=== PATIENT | female | born 1995 | race Caucasian/White ===

== ENCOUNTER 2016-10-12 14:06 | Emergency (ER) | payer SELFPAY ==
--- NOTE | 2016-10-12 14:15 | EDPRACDOC ---
- General Information Stated Complaint: LIP LESIONS Time Seen by Provider: 10/12/16 14:10 Information Source: Patient Home Medications: Home Medications Acyclovir 400 mg PO TID 10 Days 10/12/16 Clindamycin [Cleocin] 300 mg PO TID #60 capsule 10/12/16 Hydrocodone Bit/Acetaminophen [Hydrocodon-Acetaminophen 5-325] 1 tab PO Q4H PRN #10 tab 10/12/16 - History of Present Illness Onset: 4 DAYS HPI: PT STATES SHE BITE HER LIP 4-5 DAYS AGO AND THE NEXT MORNING WOKE UP WITH WHAT FELT LIKE A BUMP ON HER BOTTOM LIP ON LEFT AND HAS STARTED GETTING BIGGER SINCE , NOW HAVING PAIN AND SWELLING. PT STATES SHE THOUGHT IT WAS A COLD SORE B/C SHE GETS THEM FROM TIME TO TIME BUT THIS JUST KEEPS GETTING BIGGER. Location: Reports: Face (LEFT BOTTOM LIP) Relevent History Of: Reports: None Prior Abscess: Reports: None Pain: Reports: Mild, Moderate Quality: Reports: Painful, Red Associated Signs & Symptoms: Reports: None ED Past Medical History - History Reviewed Yes Nurses notes reviewed and agree except as marked Travel Outside of [place] in the Last 3 Months?: No No Past Medical History: Yes Patient has no past medical history - Social Medical History ETOH: None Substance Abuse: None Lives With: Other Lives In: Home EDM Review of Systems - Review of Systems ROS Negative Except as Marked: Yes All systems reviewed and were negative except as marked Constitutional: No Symptoms Reported. negative: Fever, Chills, Weakness, Fatigue, Loss of Appetite Eyes: No Symptoms Reported. negative: Redness, Blurred Vision, Double Vision, Discharge, Pain, Light Sensitive, Photophobia Ears: No Symptoms Reported. negative: Pain, Hearing Loss, Drainage, Ear Pulling Throat: No Symptoms Reported. negative: Pain, Swelling Nose: No Symptoms Reported. negative: Congestion, Bleeding, Discharge, Injection, Swelling, Deformity, Ecchymosis, Tender, Abrasion, Laceration Mouth: Other (LEFT BOTTOM LIP SWELLING AND PAIN). negative: Pain, Drooling Respiratory: No Symptoms Reported. negative: Cough, Brassy Cough, Barky Cough, Shortness of Breath, Wheezing, Hemoptysis Cardiovascular: No Symptoms Reported. negative: Chest Pain, Palpitations, Syncope, Edema, Orthopnea, PND, Skin Mottling, Cyanosis Gastrointestinal: No Symptoms Reported. negative: Pain, Constipation, Nausea, Vomiting, Diarrhea, Melena, Formula Intolerance Genitourinary: No Symptoms Reported. negative: Dysuria, Hematuria, Frequency, Discharge, Bleeding, Testicular Pain, Neurological: No Symptoms Reported. negative: Headache, Dizziness, Seizure, Numbness, Weakness, Speech Difficulty, Gait Difficulty Musculoskeletal: No Symptoms Reported. negative: Neck, Chestwall, Ribs, Back, Shoulder, Arm, Elbow, Forearm, Wrist, Hand, Pelvis, Hip, Femur, Knee, Leg, Ankle , Foot Integumentary: No Symptoms Reported. negative: Itching, Rash, Bruising, Wound Allergic/Immunologic: No Symptoms Reported. negative: Hives, Itching Hematologic: No Symptoms Reported. negative: Lymphadenopathy, Easy Bruising, Easy Bleeding Endocrine: No Symptoms Reported. negative: Weight Gain, Weight Loss Psychiatric: No Symptoms Reported. negative: Anxiety, Depression, Hallucinations, Insomnia, Suicidal - Physical Exam Constitutional: No apparent distress, Alert (Awake) Oriented to: Time, Person, Place Last recorded Vital Signs: Oxygen Pulse Oxygen Saturation O2 Device Oxygen Flow Rate Fraction of Inspired Oxygen ( FIO2) - HEENT Head: Normal ( normocephalic) Eye Exam: Normal (PERRL, EOMI, Sclera white) Oropharynx: Other (LEFT BOTTOM LIP SWELLING PAIN APPEARS MORE LIKE INFECTION, COULD BE INFECTED FEVER BLISTER.) Tympanic Membrane: Normal ENT EAC: Normal TMJ: Normal Nose: No Symptoms Reported (septum midline) Neck: Normal (FROM, trachea at midline) - Respiratory/Cardiovascular Respiratory: Normal - CTA (BBS clear to auscultation without adventitious sounds ) Cardiovascular: Normal (RRR without murmur, gallop or rub) - GI Auscultation: Normal (NABS) Palpation: Normal (Soft,No rebound or guarding, non distended) Tenderness: Non tender Peoples's Sign: Negative - Musculoskeletal Back: Normal (Non-Tender) Extremities: Normal (Normal tone, Pulses 2+ No cyanosis or edema, FROM) - Integumentary Skin: Normal, Warm, Dry Lymphatics: Normal (no adenopathy) - Neurologic Memory Impaired: Normal Motor Function: Normal (Normal tone, Pulses 2+ No cyanosis or edema, FROM) Cranial Nerve: Normal (CN II-X11 intact sensation, strength 5/5) Cerebellar: Normal Mood Description: Normal Perception: Normal - Differential Diagnosis Abscess, Other (LIP INFECTION) Decision Time to Discharge: 14:16 - Departure Disposition: Home Condition: Stable Final Diagnosis: Lip abscess Instructions: Abscess (ED) Education/Counseling Given To: Patient Education/Counseling Given Regarding: Diagnosis, Treatment, Prognosis, Follow Up Referrals: Morena Lewis MD [Primary Care Provider] - One Week Prescriptions: Acyclovir 400 mg PO TID 10 Days Clindamycin [Cleocin] 300 mg PO TID #60 capsule Hydrocodone Bit/Acetaminophen [Hydrocodon-Acetaminophen 5-325] 1 tab PO Q4H PRN #10 tab PRN Reason: Pain Additional Instructions: RETURN IN 2 DAYS FOR WOUND CHECK OR SOONER FOR WORSE OR DIFFERENT SYMPTOMS.
[2016-10-12 14:17] VITALS: BP 133/74; PULSE 64; TEMP 98.6
[2016-10-12 14:33] VITALS: BMI 30.1
== END 2016-10-12 14:30 | disposition home or self-care (01) ==
LOC: EDMC 14:06
DX: K13.0 Diseases of lips (principal)
CPT/HCPCS: 99282